=== PATIENT | female | born 2000 ===

== ENCOUNTER 2023-10-07 00:24 | Emergency (ER) | payer MEDICAID, SELFPAY ==
--- NOTE | ~2023-10-07 | XR_ITS ---
EXAMINATION: XR TIBIA AND FIBULA, LEFT CLINICAL INFORMATION: Pain. COMPARISON: None available. TECHNIQUE: AP and lateral views of the left tibia and fibula were obtained. FINDINGS: The bones and soft tissues are normal. No fracture. No osseous lesions. XR/XR tibia fibula LT 2V IMPRESSION: No significant abnormality identified.
[2023-10-07 00:37] VITALS: BP 106/72; BP 109/79; PULSE 100; PULSE 106; RESP 17; TEMP 37.2; O2SAT 98; O2SAT 99; BMI 24.2
--- NOTE | 2023-10-07 01:10 | ED.GENADULT ---
HPI - General Adult General Chief complaint: Extremity Injury, Lower Stated complaint: sprained ankle Time Seen by Provider: 10/07/23 00:27 Source: patient, RN notes reviewed and old records reviewed Mode of arrival: EMS Limitations: no limitations History of Present Illness HPI narrative: 23-year-old female presents for evaluation of left leg and ankle pain. Patient reports that she was dancing at a local [employer]. She reports that she landed awkwardly on her left ankle She reports that she initially had pain to the left ankle but now the pain is radiating up her left crocker Her pain is dull, 410 She denies hitting her head or losing consciousness Related Data Home Medications ?Medication ?Instructions ?Recorded ?Confirmed No Known Home Meds 10/07/23 10/07/23 Allergies Allergy/AdvReac Type Severity Reaction Status Date / Time No Known Allergies Allergy Verified 10/07/23 00:43 Review of Systems Constitutional: Constitutional: Denies body ache(s), Denies chills, Denies fever(s) and Denies headache(s) ENT: Denies headache(s) Cardiovascular: Cardiovascular: Denies chest pain Musculoskeletal: Musculoskeletal: Reports arthralgias, Reports joint swelling and Reports limited range of motion Integumentary/Breasts: Skin/Breast: Denies rash Neurologic: Denies headache(s) PMFSH Social History Social History Smoked in Last 30 Days: No Use of substances other than those prescribed or required for medical reasons: No Advance Directives: No Advance Directives Information Provided: No Do you have a plan to hurt others: No Plan Patient : No Physical Exam ED Vital Signs: Vital Signs - 24 hr 10/08/23 21:12 10/09/23 06:20 10/09/23 06:25 Temperature 97 F 98.4 F 97.9 F Pulse Rate 76 70 74 Respiratory Rate 18 16 16 Blood Pressure 104/63 98/61 113/56 L Pulse Oximetry 100 100 99 Oxygen Delivery Method Room Air Room Air Room Air BMI result Body Mass Index 24.2 Const General: healthy appearing, comfortable, no acute distress, alert and awake Nutritional Appearance: well nourished Orientation/consciousness: patient oriented x3 HENMT Head: Yes normocephalic and Yes atraumatic Eyes Eyelids: Yes eyelids normal Conjunctivae: conjunctivae normal Sclerae: sclerae normal Corneas: corneas normal Pupils: Equal, round and reactive pupils present EOM: EOMs intact bilaterally Neck Neck: Yes full ROM Resp Effort & Inspection: normal respiratory effort, able to speak in complete sentences and not labored GI Inspection: No distended Palpation (GI): Soft to palpation, not firm, nontender, no guarding and not rigid Skin General skin exam: elasticity normal Neuro General: patient oriented x3 Cranial nerves: Yes Equal, round and reactive pupils present and Yes Bilaterally intact EOM present Cognition (Neuro): normal cognition Extrem Other: Patient has no significant edema to left lower extremity. She is more tender to the anterior surface of the distal 3rd of the left tibia. Is no significant tenderness over left lateral malleolus or left medial malleolus. There is no calf tenderness or Achilles tenderness Course Reevaluation(s) Reevaluation #1: Apparently when the patient was being registered she expressed to staff that she was depressed with thoughts of harming herself. She really the same information to nursing staff. I went to evaluate the patient and she confirms that she is having thoughts of harming herself. She will be process, brought to the pad and will require care team evaluation for suicidal ideation Time: 02:19 Reevaluation #2: Continue physician observation, no acute events overnight, there are no acute findings on hematologic or chemistry indices, x-rays of injured extremity are negative for fracture or dislocation. Patient is otherwise medically cleared for evaluation by the care team. Time: 07:20 Reevaluation #3: continu obs waiting for crisis eval she expressed SI thought Time: 07:11 Consultations Consultation #1: Continue with physician observation, VSS, no events overnight, awaiting for bed search. Time: 09:46 Medications Administered Generic Name Dose Route Start Last Admin Trade Name Freq PRN Reason Stop Dose Admin Cefuroxime Axetil 250 mg 10/09/23 09:00 10/09/23 09:06 Cefuroxime Axetil 250 Mg Tablet PO 10/15/23 21:01 250 mg BID CAROL Administration Medical Decision Making Medical Decision Making MDM Narrative: Plan for x-rays of the left tibia and fibula. Most her pain is in the middle of the long bones rather than the ankle. There is no significant deformity on exam Differential Diagnosis Differential Diagnoses: The differential diagnosis associated with the presentation includes Ankle sprain Ankle fracture Leg contusion Neck fracture Lab Data 10/07/23 02:45 10/07/23 02:45 Labs: Lab Results 10/07/23 10/07/23 Range/Units 02:45 07:11 WBC 9.7 (4.8-10.8) X10*3/uL RBC 5.16 (4.20-5.50) X10*6/uL Hgb 12.3 (12.0-16.0) g/dl Hct 37.6 (37.0-47.0) % MCV 72.9 L (80.0-98.0) fL MCH 23.8 L (27.0-33.0) pg MCHC 32.7 (31.0-35.0) g/dl RDW 14.2 (11.0-16.0) % Plt Count 342 (160-400) X10*3/uL MPV 9.8 (9.4-12.3) fL Immature Gran % (Auto) 0.2 (0.0-0.4) % Neut % (Auto) 50.3 (45-73) % Lymph % (Auto) 39.5 (20-40) % Cherry % (Auto) 6.1 (2-11) % Eos % (Auto) 3.5 (0-4) % Baso % (Auto) 0.4 (0-2) % Lymph # (Auto) 3.8 (1.2-4.9) X10*3/uL Cherry # (Auto) 0.6 (0.1-1.2) X10*3/uL Eos # (Auto) 0.3 (0.0-0.4) X10*3/uL Baso # (Auto) 0.0 (0.0-0.2) X10*3/uL Abs Immat Gran (auto) 0.02 (0.00-0.03) X10*3/uL Absolute Neuts (auto) 4.9 (2.0-8.3) x10*3/uL Absolute Nucleated RBC 0.000 (0.0-0.012) X10*3/uL Nucleated RBC % (auto) 0.0 (0.0-0.2) /100WBC Sodium 140 (135-145) mmol/L Potassium 3.4 (3.3-5.1) mmol/L Chloride 106 (96-108) mmol/L Carbon Dioxide 23 (22-29) mmol/L Anion Gap 14 (12-20) BUN 12 (9-16) mg/dL Creatinine 1.05 (0.5-1.4) mg/dL Estim Creat Clear Calc 79.3 Estimated GFR > 60 Random Glucose 101 (60-115) mg/dL Calcium 9.6 (8.4-10.2) mg/dL Total Bilirubin 0.5 (0.0-1.0) mg/dL AST 19 (5-31) U/L ALT 15 (0-31) U/L Alkaline Phosphatase 70 (39-117) U/L Total Protein 8.2 H (6.5-8.0) g/dL Albumin 4.6 (3.5-5.0) g/dL Urine Color Yellow Urine Appearance Cloudy Urine pH 5.5 (5.0-9.0) Ur Specific [place] 1.025 (1.005-1.025) Urine Protein Trace (Neg-Trace) mg/dL Urine Glucose (UA) Negative (Negative) mg/dL Urine Ketones Negative (Negative) mg/dL Urine Blood Negative (Negative) Urine Nitrite Positive H (Negative) Ur Leukocyte Esterase Moderate (2+) H (Negative) Urine RBC 0-2 (0-2) /HPF Urine WBC >50 H (0-5) /HPF Ur Squamous Epith Cells 0-2 (0-2) /HPF Urine Bacteria 4+ (None Seen) Hyaline Casts 0-2 (0-2) /LPF Urine Test NEGATIVE (NEGATIVE) Salicylates < 5.0 L (15-30) mg/dL Urine Opiates Screen Not Detected (Not Detect) Ur Buprenorphine Scrn Not Detected (Not Detect) ng/mL Ur Oxycodone Screen Not Detected (Not Detect) ng/mL Urine Methadone Screen Not Detected (Not Detect) ng/mL Urine Fentanyl Screen Not Detected (Not Detect) Acetaminophen < 3 (<30) mcg/mL Ur Barbiturates Screen Not Detected (Not Detect) Ur Phencyclidine Scrn Not Detected (Not Detect) Ur Amphetamines Screen Not Detected (Not Detect) U Benzodiazepines Scrn Not Detected (Not Detect) Urine Cocaine Screen Not Detected (Not Detect) U Marijuana (THC) Screen Not Detected (Not Detect) Ethyl Alcohol < 10 mg/dL COVID-19 (CHANG) Negative (Negative) COVID-19 Clin Com See Note Independent Interpretation I performed an independent interpretation of an: Plain X-Ray Interpretation: Negative x-ray Discharge Plan Discharge Clinical Impression: Left leg pain, Depression, Acute UTI Patient Disposition: Still a Patient Prescriptions: No Action No Known Home Meds Print Language: Syriac
--- NOTE | 2023-10-07 01:54 | PC.NURSE ---
pt biba from home, a&ox4, respirations even and unlabored. pt reporting playing dance dance revolution at [employer] when she jumped up to play the last note when she fell on her left ankle and felt a very sharp pain shoot up her calf. cms in tact. pt able to wiggle toes and has full ROM. awaiting xray results
[2023-10-07 02:00] VITALS: BP 106/74; PULSE 92; RESP 16; TEMP 36.4; O2SAT 98
--- NOTE | 2023-10-07 02:14 | PC.NURSE ---
upon assessment, pt crying in room, pt now reporting thoughts of SI and depression. Clark REAVES aware, pt being changed into POD attire.
--- NOTE | 2023-10-07 02:28 | MHC.EDTECH ---
Belongings brought by security to pod, locker #12.
--- NOTE | 2023-10-07 02:28 | PC.NURSE ---
Addendum entered by Deandra Simpson 10/07/23 02:38: POD locker 12 Original Note: belongings placed in POD locker 11.
[2023-10-07 02:57] LABS: MANUAL DIFF FLAG NO
[2023-10-07 03:01] LABS: Basophils Percent Auto 0.4 % (0-2); Eosinophils Absolute Auto 0.3 X10*3/uL (0.0-0.4); Eosinophils Percent Auto 3.5 % (0-4); Hematocrit 37.6 % (37.0-47.0); Hemoglobin 12.3 g/dl (12.0-16.0); Imm Gran Abs Auto 0.02 X10*3/uL (0.00-0.03); Imm Gran Pct Auto 0.2 % (0.0-0.4); Lymphocytes Absolute Auto 3.8 X10*3/uL (1.2-4.9); Lymphocytes Percent Auto 39.5 % (20-40); Mean Corpuscular HGB Conc 32.7 g/dl (31.0-35.0); Mean Corpuscular Hemoglobin 23.8 pg (27.0-33.0); Mean Corpuscular Volume 72.9 fL (80.0-98.0); Mean Platelet Volume 9.8 fL (9.4-12.3); Monocytes Absolute Auto 0.6 X10*3/uL (0.1-1.2); Monocytes Percent Auto 6.1 % (2-11); Neutrophils Absolute Auto 4.9 x10*3/uL (2.0-8.3); Neutrophils Percent Auto 50.3 % (45-73); Platelet Count 342 X10*3/uL (160-400); Red Blood Count 5.16 X10*6/uL (4.20-5.50); Red Cell Distribution Width 14.2 % (11.0-16.0); White Blood Count 9.7 X10*3/uL (4.8-10.8)
[2023-10-07 03:14] LABS: Alanine Aminotransferase 15 U/L (0-31); Albumin Level 4.6 g/dL (3.5-5.0); Alkaline Phosphatase 70 U/L (39-117); Anion Gap 14 (12-20); Aspartate Amino Transferase 19 U/L (5-31); Bilirubin Total 0.5 mg/dL (0.0-1.0); Blood Urea Nitrogen 12 mg/dL (9-16); Calcium 9.6 mg/dL (8.4-10.2); Carbon Dioxide 23 mmol/L (22-29); Chloride 106 mmol/L (96-108); Creatinine Clr Calc Pharmacy 79.3; Estimated Glomerular Filt Rate > 60; Ethanol < 10 mg/dL; Glucose Random 101 mg/dL (60-115); Potassium 3.4 mmol/L (3.3-5.1); Sodium 140 mmol/L (135-145); Total Protein 8.2 g/dL (6.5-8.0)
[2023-10-07 03:25] LABS: COVID-19 Test Negative (Negative); IDNOW Serial# 152EDE1D
--- NOTE | 2023-10-07 03:32 | MHC.EDTECH ---
pt prefers to be called PEPPER and THEY/THEM pronouns.
[2023-10-07 03:57] LABS: Acetaminophen LAB < 3 mcg/mL (<30); Salicylate < 5.0 mg/dL (15-30)
--- NOTE | 2023-10-07 06:05 | PC.NURSE ---
Patient is in bed appears sleeping, transferred from [facility] for self harm ideation, care consult ordered/pending evaluation, med rec completed/currently not on any home medication, no pain reported, no distress observed/reported, pleasant and in good behavioral control, urine pending for UTOX, VSS, will continue to monitor.
--- NOTE | 2023-10-07 06:59 | PC.NURSE ---
Assumed care of patient at 0645. Patient is observed eating breakfast quietly in there room. Not in distress at this time. No behavioral issues to report at this time. Will continue plan of care.
[2023-10-07 07:21] LABS: Appearance Urine Cloudy; Color Urine Yellow; Glucose Urine UA Negative (Negative); Leukocyte Esterase Urine Moderate (2+) (Negative); Nitrite Urine Positive (Negative); PH 5.5 (5.0-9.0); Specific Gravity - Urine 1.025 (1.005-1.025); UMIC TRIGGER UACC YES; Urine Blood Negative (Negative); Urine Ketones Negative (Negative); Urine Protein Trace mg/dL (Neg-Trace)
[2023-10-07 07:22] LABS: UPreg QC Valid YES; Urine Pregnancy NEGATIVE (NEGATIVE)
[2023-10-07 07:26] LABS: Bacteria Urine 4+ (None Seen); Hyaline Casts Urine 0-2 /LPF (0-2); RBC Urine 0-2 /HPF (0-2); Squamous Epithelial Cell Urine 0-2 /HPF (0-2); UACC Culture Trigger YES; WBC Urine >50 /HPF (0-5)
[2023-10-07 07:28] LABS: Amphetamine Screen Urine Not Detected (Not Detect); Barbiturates, Urine Not Detected (Not Detect); Benzodiazepines Screen Urine Not Detected (Not Detect); Buprenorphine Scr Not Detected (Not Detect); Cannabinoid Screen Urine Not Detected (Not Detect); Cocaine Screen Urine Not Detected (Not Detect); Fentanyl, urine Not Detected (Not Detect); Methadone Screen, Urine Not Detected (Not Detect); Opiate Screen Urine Not Detected (Not Detect); Oxycodone Screen Urine Not Detected (Not Detect); Phencyclidine Screen Urine Not Detected (Not Detect)
[2023-10-07 08:14] VITALS: BP 111/68; PULSE 91; RESP 18; TEMP 36.2; O2SAT 100
[2023-10-07 15:20] VITALS: BP 110/66; PULSE 89; RESP 16; TEMP 36.1; O2SAT 99
[2023-10-08 02:32] VITALS: RESP 14
--- NOTE | 2023-10-08 02:33 | PC.NURSE ---
Pt is resting at the bedside watching TV. No apparent distress noted. Monitoring is ongoing.
[2023-10-08 06:33] VITALS: BP 99/65; PULSE 84; RESP 16; TEMP 37.1; O2SAT 99
--- NOTE | 2023-10-08 06:55 | PC.NURSE ---
Assumed care of patient. Patient is observed eating breakfast at bedside. No distress observed. Breathing is even and unlabored. Will continue plan of care.
--- NOTE | 2023-10-08 12:02 | PHA.MEDREC ---
Pharmacy Consult ? Medication Reconciliation Pharmacy has completed the medication reconciliation. Pharmacy has reviewed the med rec done by Nils.
[2023-10-08 21:12] VITALS: BP 104/63; PULSE 76; RESP 18; TEMP 36.1; O2SAT 100
--- NOTE | 2023-10-09 05:27 | PC.NURSE ---
Patient slept through the night, no distress observed/reported, patient is currently not on any medication, appetite good, disposition per care team is voluntary inpatient bed search, VSS, no behavior issues, will continue to monitor
[2023-10-09 06:20] VITALS: BP 98/61; PULSE 70; RESP 16; TEMP 36.9; O2SAT 100
[2023-10-09 06:25] VITALS: BP 113/56; PULSE 74; RESP 16; TEMP 36.6; O2SAT 99
--- NOTE | 2023-10-09 07:57 | PC.NURSE ---
Assumed care of patient at 0645, patient appears to be in no apparent distress at this time, sitting in common area watching TV, respirations even and unlabored, offering no complaints to this RN. Continue plan of care for inpatient bedsearch
[2023-10-09] MEDS: cefuroxime axetiL 250 MG TABLET PO (09:06)
--- NOTE | 2023-10-09 11:46 | PC.NURSE ---
late entry: patient requesting to go home and utilize outpatient resources. CARE team Demi in to speak with patient, then Dr. Olivas. Plan for discharge
[2023-10-09 12:54] VITALS: BP 114/87; PULSE 87; RESP 16; TEMP 36.7; O2SAT 97
== END 2023-10-09 12:59 | disposition home or self-care (01) ==
PROVIDERS: Physician Assistant; Emergency Provider Internal Medicine
DX: M79.605 Pain in left leg (principal); N39.0 Urinary tract infection, site not specified; F32.A Depression, unspecified; Z11.52 Encounter for screening for COVID-19
CPT/HCPCS: 36415; 73590; 80053; 80143; 80179; 80307; 81001; 81025; 85025; 87086; 87088; 87186; 87635; 99284; 99285; S9485